=== PATIENT | female | born 1950 | race Caucasian/White ===

== ENCOUNTER 2021-10-16 16:22 | Emergency (ER) | payer MEDICARE ==
[2021-10-16] MEDS ORDERED: Albuterol Sulfate 2.5 mg/0.5 ml Neb ONE (17:10)
[2021-10-16] MEDS ORDERED: AMOXicillin 250 MG CAP ONE (18:01)
== END 2021-10-16 18:10 | disposition home or self-care (01) ==
LOC: BURERS 16:22
DX: J22 Unspecified acute lower respiratory infection (principal); E10.9 Type 1 diabetes mellitus without complications; E78.5 Hyperlipidemia, unspecified; E78.00 Pure hypercholesterolemia, unspecified; I10 Essential (primary) hypertension; E05.90 Thyrotoxicosis, unspecified without thyrotoxic crisis or storm; Z20.822 Contact with and (suspected) exposure to COVID-19
CPT/HCPCS: 71046; 87804; 94640; 94760; J7611; U0003; U0005

== ENCOUNTER 2024-08-27 12:14 | Outpatient (CLI) | payer MEDICARE | END 2024-08-27 12:15 | disposition home or self-care (01) | LOC: BURRAD 12:14 | PROVIDERS: ATTEND Surgery | DX: S32.041D Stable burst fracture of fourth lumbar vertebra, subsequent encounter for fracture with routine healing (principal); M47.816 Spondylosis without myelopathy or radiculopathy, lumbar region; M48.56XD Collapsed vertebra, not elsewhere classified, lumbar region, subsequent encounter for fracture with routine healing | CPT/HCPCS: 72100 ==